=== PATIENT | female | born 1975 | race African-American/Black ===

== ENCOUNTER 2016-04-29 00:02 | Emergency (ER) | payer OTHER ==
[~2016-04-29] VITALS: Ht 165.1 cm; Wt 81.8 kg
[~2016-04-29 00:02] MED LIST: AMOXICILLIN 50500 MG PO; ANTIVERT 25MG25 MG PO; BIAXIN FILMTAB500 MG PO; CARAFATE S1 GM/10 ML PO; CEPHALEXIN500 M1 PO; FLEXERIL10 MG PO; LORTAB 5/500 501 TAB PO; NO HOME MEDICATIONS; NORCO 325 MG-51 TAB PO; PERCOCET 325 MG1 TA2 PO; PERCOCET 5/321 UDTAB PO; PHENERGAN 25 TA25 MG PO; PHENERGAN W/CO120 ML PO; PREDNISONE10 MG PO; PREVACID 30MG30 MG PO; PRIL40 PO; PRILOSEC 20MG20 MG PO; REGLAN 10MG10 MG/TAB PO; TRIAMCINOLONE AC0.5% TP; ULTRAM 50MG TAB50 MG PO; ZITHROMAX Z PA250 MG PO; ZOFRAN8 MG PO
[2016-04-29 00:14] VITALS: TEMP 98.2
[2016-04-29 01:05] LABS: BASO # 0.1 (0.0-0.2); EOS # 0.3 (0.0-0.7); EOS % 4.8 % (0-4.0); GRAN # 3.6 (1.4-6.5); GRAN % 56.5 % (42.2-75.2); HEMOGLOBIN 12.4 g/dl (12.5-16.0); LYMPH # 1.9 (1.2-3.4); MEAN CELL VOLUME 86 fl (80.0-100.0); MEAN CORPUSCULAR HEMOGLOBIN 30 pg (27.0-31.0); MEAN CORPUSCULAR HGB CONC 35 g/dl (33.0-37.0); MEAN PLATELET VOLUME 10.4 fl (7.4-10.4); MONO # 0.5 (0.1-0.6); MONO % 7.5 % (1.7-9.3); PLATELET COUNT 271 K/mm3 (130-400); REDCELL DISTRIBUTION WIDTH-CV 12.3 % (11.5-14.5); WHITE BLOOD COUNT 6.3 K/mm3 (4.8-10.8)
[2016-04-29 01:06] LABS: HEMATOCRIT 35.1 % (37.0-47.0)
[2016-04-29 01:18] LABS: ADJUSTED CALCIUM 9.1 mg/dL (8.4-10.2); ALANINE AMINOTRANSFERASE 32 U/L (9-52); ALBUMIN 3.5 gm/dL (3.5-5.0); ALKALINE PHOSPHATASE 56 U/L (50-136); ANION GAP 10 mmol/L (7-16); BILIRUBIN,TOTAL 0.4 mg/dL (0.0-1.0); BLOOD UREA NITROGEN 13 mg/dL (7-17); CALCIUM 8.7 mg/dL (8.4-10.2); CARBON DIOXIDE 23 mmol/L (22-30); CHLORIDE 107 mmol/L (98-107); CREATININE, serum 0.72 mg/dL (0.52-1.25); GLUCOSE 99 mg/dL (74-106); LIPASE 66 U/L (23-300); MAGNESIUM 1.6 mg/dL (1.6-2.3); POTASSIUM 3.8 mmol/L (3.4-5.0); SODIUM 139 mmol/L (137-145); TOTAL PROTEIN 6.8 gm/dL (6.4-8.2)
[2016-04-29 01:34] LABS: TROPONIN-I < 0.012 ng/mL (0.000-0.034)
[2016-04-29 02:42] VITALS: BP 127/54; PULSE 64
== END 2016-04-29 02:42 | disposition home or self-care (01) ==
LOC: COL.ER 00:02
PROVIDERS: Emergency Medicine
DX: R07.89 Other chest pain (principal); K21.9 Gastro-esophageal reflux disease without esophagitis
CPT/HCPCS: J1885

== ENCOUNTER 2016-05-17 22:13 | Emergency (ER) | payer OTHER ==
[~2016-05-17] VITALS: Ht 165.1 cm; Wt 81.8 kg
[2016-05-17 22:16] VITALS: BP 113/72
[2016-05-17 23:14] LABS: INFLUENZA B NEGATIVE
[2016-05-17 23:25] VITALS: PULSE 82; TEMP 98.6
== END 2016-05-17 23:26 | disposition home or self-care (01) ==
LOC: COL.ER 22:13
PROVIDERS: Physician Assistant
DX: B34.9 Viral infection, unspecified (principal); R05 Cough; R50.9 Fever, unspecified; R09.89 Other specified symptoms and signs involving the circulatory and respiratory systems

== ENCOUNTER → 2016-07-14 | Outpatient (REF) | LOC: WSOH 14:48 | DX: Z01.89 Encounter for other specified special examinations (principal) ==

== ENCOUNTER 2016-07-30 14:53 | Emergency (ER) | payer OTHER ==
[~2016-07-30] VITALS: Ht 165.1 cm; Wt 81.8 kg
[2016-07-30 14:55] VITALS: TEMP 98.2
[2016-07-30 15:50] LABS: BASO # 0.1 (0.0-0.2); BASO % 0.9 % (0.0-2.0); EOS # 0.2 (0.0-0.7); GRAN # 3.4 (1.4-6.5); GRAN % 58.7 % (42.2-75.2); HEMOGLOBIN 12.6 g/dl (12.5-16.0); LYMPH # 1.7 (1.2-3.4); LYMPH % 29.5 % (20.0-51.0); MEAN CELL VOLUME 87 fl (80.0-100.0); MEAN CORPUSCULAR HEMOGLOBIN 30 pg (27.0-31.0); MEAN CORPUSCULAR HGB CONC 35 g/dl (33.0-37.0); MEAN PLATELET VOLUME 10.5 fl (7.4-10.4); MONO # 0.4 (0.1-0.6); MONO % 7.7 % (1.7-9.3); PLATELET COUNT 270 K/mm3 (130-400); RED BLOOD COUNT 4.18 M/mm3 (4.10-5.30); REDCELL DISTRIBUTION WIDTH-CV 12.3 % (11.5-14.5); WHITE BLOOD COUNT 5.7 K/mm3 (4.8-10.8)
[2016-07-30 15:52] LABS: HEMATOCRIT 36.3 % (37.0-47.0)
[2016-07-30] MEDS ORDERED: PRIL40 PO (16:04)
[2016-07-30] MEDS ORDERED: ULTRAM 50MG TAB50 MG PO (16:04)
[2016-07-30] MEDS ORDERED: ZOFRAN8 MG PO (16:04)
[2016-07-30 16:05] LABS: ALANINE AMINOTRANSFERASE 23 U/L (9-52); ALBUMIN 3.9 gm/dL (3.5-5.0); ALKALINE PHOSPHATASE 65 U/L (50-136); ANION GAP 8 mmol/L (7-16); BILIRUBIN,TOTAL 0.6 mg/dL (0.0-1.0); BLOOD UREA NITROGEN 8 mg/dL (7-17); CALCIUM 8.9 mg/dL (8.4-10.2); CARBON DIOXIDE 24 mmol/L (22-30); CHLORIDE 105 mmol/L (98-107); CREATININE, serum 0.62 mg/dL (0.52-1.25); GLUCOSE 90 mg/dL (74-106); LIPASE 45 U/L (23-300); POTASSIUM 3.4 mmol/L (3.4-5.0); SODIUM 138 mmol/L (137-145); TOTAL PROTEIN 7.1 gm/dL (6.4-8.2)
[2016-07-30 16:06] LABS: C-REACTIVE PROTEIN < 0.5 mg/dL (0.0-0.9)
[2016-07-30 16:10] LABS: PH 7 (5-8); SQUAMOUS EPITHELIAL None Seen /hpf; URINE APPEARANCE Clear; URINE BACTERIA None Seen /hpf; URINE BILIRUBIN Negative (NEGATIVE); URINE BLOOD Negative (NEGATIVE); URINE COLOR Straw; URINE GLUCOSE Negative (NEGATIVE); URINE KETONE Negative (NEGATIVE); URINE RBC None Seen /hpf; URINE UROBILINOGEN Negative (NEGATIVE); URINE WBC None Seen /hpf
[2016-07-30 17:44] VITALS: BP 104/66; PULSE 66
== END 2016-07-30 17:50 | disposition home or self-care (01) ==
LOC: COL.ER 14:53
PROVIDERS: Emergency Medicine
DX: R10.13 Epigastric pain (principal); E86.9 Volume depletion, unspecified; R11.10 Vomiting, unspecified; R19.7 Diarrhea, unspecified
CPT/HCPCS: J1170; J1885; J2405; J2765; J7030

== ENCOUNTER 2016-09-10 04:03 | Emergency (ER) | payer SELFPAY ==
[~2016-09-10] VITALS: Ht 165.1 cm; Wt 81.8 kg
[2016-09-10 04:07] VITALS: TEMP 98.3
[2016-09-10 04:21] LABS: BASO % 0.7 % (0.0-2.0); EOS # 0.3 (0.0-0.7); EOS % 4.5 % (0-4.0); GRAN % 53.4 % (42.2-75.2); HEMOGLOBIN 12.2 g/dl (12.5-16.0); LYMPH # 1.9 (1.2-3.4); LYMPH % 34.2 % (20.0-51.0); MEAN CELL VOLUME 86 fl (80.0-100.0); MEAN CORPUSCULAR HEMOGLOBIN 31 pg (27.0-31.0); MEAN CORPUSCULAR HGB CONC 36 g/dl (33.0-37.0); MEAN PLATELET VOLUME 10.8 fl (7.4-10.4); MONO # 0.4 (0.1-0.6); PLATELET COUNT 252 K/mm3 (130-400); RED BLOOD COUNT 3.99 M/mm3 (4.10-5.30); REDCELL DISTRIBUTION WIDTH-CV 12.7 % (11.5-14.5); WHITE BLOOD COUNT 5.6 K/mm3 (4.8-10.8)
[2016-09-10 04:26] LABS: HEMATOCRIT 34.3 % (37.0-47.0)
[2016-09-10 04:31] LABS: INR 1.1 (0.8-3.0); PROTHROMBIN TIME 11.8 SECONDS (9.7-12.8)
[2016-09-10 04:33] LABS: ADJUSTED CALCIUM 8.7 mg/dL (8.4-10.2); ALANINE AMINOTRANSFERASE 21 U/L (9-52); ALBUMIN 3.8 gm/dL (3.5-5.0); ALKALINE PHOSPHATASE 56 U/L (50-136); ANION GAP 10 mmol/L (7-16); BILIRUBIN,TOTAL 0.4 mg/dL (0.0-1.0); BLOOD UREA NITROGEN 9 mg/dL (7-17); CALCIUM 8.5 mg/dL (8.4-10.2); CARBON DIOXIDE 24 mmol/L (22-30); CHLORIDE 106 mmol/L (98-107); CREATININE, serum 0.64 mg/dL (0.52-1.25); GLUCOSE 99 mg/dL (74-106); POTASSIUM 3.7 mmol/L (3.4-5.0); SODIUM 140 mmol/L (137-145); TOTAL PROTEIN 6.8 gm/dL (6.4-8.2)
[2016-09-10 04:34] LABS: PARTIAL THROMBOPLASTIN TIME 31.4 SECONDS (26.0-37.0)
[2016-09-10 04:45] LABS: TROPONIN-I < 0.012 ng/mL (0.000-0.034)
[2016-09-10 08:28] VITALS: BP 106/67; PULSE 60
== END 2016-09-10 06:41 | disposition home or self-care (01) ==
LOC: COL.ER 04:03
PROVIDERS: Family Medicine
DX: R07.89 Other chest pain (principal)
CPT/HCPCS: J1885

== ENCOUNTER 2017-03-25 12:53 | Emergency (ER) | payer SELFPAY ==
[~2017-03-25] VITALS: Ht 162.6 cm; Wt 76.4 kg
[2017-03-25 12:54] VITALS: TEMP 99.1
[2017-03-25 13:29] LABS: BASO % 0.6 % (0.0-2.0); EOS # 0.2 (0.0-0.7); EOS % 2.9 % (0-4.0); GRAN # 2.5 (1.4-6.5); GRAN % 49.5 % (42.2-75.2); HEMOGLOBIN 12.6 g/dl (12.5-16.0); LYMPH # 1.8 (1.2-3.4); MEAN CELL VOLUME 88 fl (80.0-100.0); MEAN CORPUSCULAR HEMOGLOBIN 31 pg (27.0-31.0); MEAN CORPUSCULAR HGB CONC 35 g/dl (33.0-37.0); MEAN PLATELET VOLUME 10.2 fl (7.4-10.4); MONO # 0.6 (0.1-0.6); MONO % 11.8 % (1.7-9.3); PLATELET COUNT 280 K/mm3 (130-400); RED BLOOD COUNT 4.12 M/mm3 (4.10-5.30); WHITE BLOOD COUNT 5.1 K/mm3 (4.8-10.8)
[2017-03-25 13:33] LABS: ADJUSTED CALCIUM 8.7 mg/dL (8.4-10.2); ALANINE AMINOTRANSFERASE 20 U/L (9-52); ALBUMIN 4.1 gm/dL (3.5-5.0); ALKALINE PHOSPHATASE 57 U/L (50-136); ANION GAP 7 mmol/L (7-16); BILIRUBIN,TOTAL 0.5 mg/dL (0.0-1.0); BLOOD UREA NITROGEN 10 mg/dL (7-17); CALCIUM 8.8 mg/dL (8.4-10.2); CARBON DIOXIDE 22 mmol/L (22-30); CHLORIDE 110 mmol/L (98-107); CREATININE, serum 0.62 mg/dL (0.52-1.25); GLUCOSE 94 mg/dL (74-106); HEMATOCRIT 36.3 % (37.0-47.0); LIPASE 42 U/L (23-300); POTASSIUM 3.6 mmol/L (3.4-5.0); SODIUM 139 mmol/L (137-145); TOTAL PROTEIN 7.5 gm/dL (6.4-8.2)
[2017-03-25 13:45] LABS: TROPONIN-I < 0.012 ng/mL (0.000-0.034)
[2017-03-25 15:07] VITALS: BP 116/66; PULSE 57
== END 2017-03-25 15:17 | disposition home or self-care (01) ==
LOC: COL.ER 12:53
PROVIDERS: Physician Assistant
DX: K21.9 Gastro-esophageal reflux disease without esophagitis (principal); R07.89 Other chest pain; G89.29 Other chronic pain
CPT/HCPCS: J1885; J2270; J2405

== ENCOUNTER 2017-06-25 17:06 | Emergency (ER) | payer SELFPAY ==
[~2017-06-25] VITALS: Ht 165.1 cm; Wt 81.8 kg
[2017-06-25 17:08] VITALS: TEMP 97.7
[2017-06-25 17:38] LABS: BASO # 0.1 (0.0-0.2); BASO % 0.9 % (0.0-2.0); EOS # 0.3 (0.0-0.7); GRAN # 2.9 (1.4-6.5); GRAN % 52.4 % (42.2-75.2); HEMOGLOBIN 12.8 g/dl (12.5-16.0); LYMPH # 1.8 (1.2-3.4); LYMPH % 32.8 % (20.0-51.0); MEAN CELL VOLUME 90 fl (80.0-100.0); MEAN CORPUSCULAR HEMOGLOBIN 31 pg (27.0-31.0); MEAN CORPUSCULAR HGB CONC 35 g/dl (33.0-37.0); MEAN PLATELET VOLUME 10.5 fl (7.4-10.4); MONO # 0.5 (0.1-0.6); MONO % 8.7 % (1.7-9.3); PLATELET COUNT 288 K/mm3 (130-400); RED BLOOD COUNT 4.13 M/mm3 (4.10-5.30); REDCELL DISTRIBUTION WIDTH-CV 12.3 % (11.5-14.5)
[2017-06-25 18:29] LABS: ALANINE AMINOTRANSFERASE 31 U/L (9-52); ALBUMIN 4.2 gm/dL (3.5-5.0); ALKALINE PHOSPHATASE 55 U/L (50-136); ANION GAP 10 mmol/L (7-16); AST,SGOT 22 U/L (15-37); BILIRUBIN,TOTAL 0.2 mg/dL (0.0-1.0); BLOOD UREA NITROGEN 12 mg/dL (7-17); CARBON DIOXIDE 23 mmol/L (22-30); CHLORIDE 109 mmol/L (98-107); CREATININE, serum 0.63 mg/dL (0.52-1.25); GLUCOSE 91 mg/dL (74-106); POTASSIUM 4.1 mmol/L (3.4-5.0); SODIUM 141 mmol/L (137-145); TOTAL PROTEIN 7.5 gm/dL (6.4-8.2)
[2017-06-25 18:41] LABS: TROPONIN-I < 0.012 ng/mL (0.000-0.034)
[2017-06-25] MEDS ORDERED: VOLTAREN 75 DR75 MG PO (19:26)
[2017-06-25 19:34] VITALS: BP 116/71; PULSE 73
== END 2017-06-25 19:35 | disposition home or self-care (01) ==
LOC: COL.ER 17:06
PROVIDERS: Emergency Medicine
DX: R07.89 Other chest pain (principal); Z90.710 Acquired absence of both cervix and uterus; Z90.49 Acquired absence of other specified parts of digestive tract; Z90.89 Acquired absence of other organs
CPT/HCPCS: J1885; J2060; J3010

== ENCOUNTER 2017-06-29 16:44 | Emergency (ER) | payer SELFPAY ==
[~2017-06-29] VITALS: Ht 165.1 cm; Wt 82.2 kg
[~2017-06-29 16:44] MED LIST changes: +VOLTAREN 75 DR75 MG PO
[2017-06-29 16:46] VITALS: BP 132/63; TEMP 98.6
[2017-06-29 18:15] VITALS: PULSE 79
== END 2017-06-29 18:15 | disposition home or self-care (01) ==
LOC: COL.ER 16:44
DX: R05 Cough (principal); Z90.89 Acquired absence of other organs; Z90.710 Acquired absence of both cervix and uterus; Z98.51 Tubal ligation status

== ENCOUNTER → 2017-08-12 | Outpatient (CLI) | payer SELFPAY | LOC: COL.RAD 16:30 | DX: M25.561 Pain in right knee (principal); M25.562 Pain in left knee ==

== ENCOUNTER → 2017-09-16 | Outpatient (CLI) | payer SELFPAY | LOC: COL.RAD 13:35 | DX: M71.22 Synovial cyst of popliteal space [Baker], left knee (principal); M25.461 Effusion, right knee; I83.91 Asymptomatic varicose veins of right lower extremity ==

== ENCOUNTER 2017-09-29 23:06 | Emergency (ER) | payer SELFPAY ==
[~2017-09-29] VITALS: Ht 165.1 cm; Wt 83.6 kg
[2017-09-29 23:14] VITALS: TEMP 97.8
[2017-09-29 23:28] LABS: BASO % 0.4 % (0.0-2.0); EOS # 0.2 (0.0-0.7); GRAN # 5.9 (1.4-6.5); GRAN % 66.2 % (42.2-75.2); HEMOGLOBIN 13.2 g/dl (12.5-16.0); LYMPH # 2.2 (1.2-3.4); LYMPH % 24.9 % (20.0-51.0); MEAN CELL VOLUME 85 fl (80.0-100.0); MEAN CORPUSCULAR HEMOGLOBIN 30 pg (27.0-31.0); MEAN CORPUSCULAR HGB CONC 36 g/dl (33.0-37.0); MEAN PLATELET VOLUME 10.5 fl (7.4-10.4); MONO # 0.6 (0.1-0.6); MONO % 6.3 % (1.7-9.3); PLATELET COUNT 320 K/mm3 (130-400); RED BLOOD COUNT 4.34 M/mm3 (4.10-5.30); REDCELL DISTRIBUTION WIDTH-CV 12.1 % (11.5-14.5)
[2017-09-29 23:33] LABS: PROTHROMBIN TIME 11.9 SECONDS (9.7-12.8)
[2017-09-29 23:36] LABS: PARTIAL THROMBOPLASTIN TIME 31.4 SECONDS (26.0-37.0)
[2017-09-29 23:38] LABS: ALANINE AMINOTRANSFERASE 26 U/L (9-52); ALBUMIN 3.8 gm/dL (3.5-5.0); ALKALINE PHOSPHATASE 66 U/L (50-136); ANION GAP 11 mmol/L (7-16); AST,SGOT 19 U/L (15-37); BILIRUBIN,TOTAL 0.5 mg/dL (0.0-1.0); BLOOD UREA NITROGEN 9 mg/dL (7-17); CALCIUM 9.1 mg/dL (8.4-10.2); CARBON DIOXIDE 23 mmol/L (22-30); CHLORIDE 106 mmol/L (98-107); CREATININE, serum 0.66 mg/dL (0.52-1.25); GLUCOSE 115 mg/dL (74-106); LIPASE 50 U/L (23-300); POTASSIUM 3.6 mmol/L (3.4-5.0); SODIUM 140 mmol/L (137-145); TOTAL PROTEIN 7.8 gm/dL (6.4-8.2)
[2017-09-29 23:51] LABS: TROPONIN-I < 0.012 ng/mL (0.000-0.034)
[2017-09-30 02:10] VITALS: BP 103/73; PULSE 88
== END 2017-09-30 02:10 | disposition home or self-care (01) ==
LOC: COL.ER 23:06
PROVIDERS: Emergency Medicine
DX: R07.89 Other chest pain (principal); K21.9 Gastro-esophageal reflux disease without esophagitis; Z90.710 Acquired absence of both cervix and uterus; Z90.89 Acquired absence of other organs
CPT/HCPCS: J2060; J2270; J2405; J7030

== ENCOUNTER 2017-10-06 18:20 | Emergency (ER) | payer SELFPAY ==
[~2017-10-06] VITALS: Ht 165.1 cm; Wt 83.6 kg
[2017-10-06 18:28] VITALS: BP 109/73; TEMP 98.1
[2017-10-06 18:59] LABS: BASO # 0.1 (0.0-0.2); EOS # 0.3 (0.0-0.7); EOS % 3.4 % (0-4.0); GRAN # 4.3 (1.4-6.5); GRAN % 58.7 % (42.2-75.2); HEMOGLOBIN 12.9 g/dl (12.5-16.0); LYMPH # 2.1 (1.2-3.4); LYMPH % 28.4 % (20.0-51.0); MEAN CELL VOLUME 87 fl (80.0-100.0); MEAN CORPUSCULAR HEMOGLOBIN 31 pg (27.0-31.0); MEAN CORPUSCULAR HGB CONC 35 g/dl (33.0-37.0); MEAN PLATELET VOLUME 10.3 fl (7.4-10.4); MONO # 0.6 (0.1-0.6); MONO % 8.2 % (1.7-9.3); PLATELET COUNT 296 K/mm3 (130-400); RED BLOOD COUNT 4.18 M/mm3 (4.10-5.30); REDCELL DISTRIBUTION WIDTH-CV 11.9 % (11.5-14.5)
[2017-10-06 19:02] LABS: HEMATOCRIT 36.5 % (37.0-47.0)
[2017-10-06 19:07] LABS: ALBUMIN 3.6 gm/dL (3.5-5.0); BILIRUBIN,TOTAL 0.4 mg/dL (0.0-1.0); CALCIUM 8.8 mg/dL (8.4-10.2); CREATININE, serum 0.91 mg/dL (0.52-1.25); POTASSIUM 4.1 mmol/L (3.4-5.0); TOTAL PROTEIN 7.2 gm/dL (6.4-8.2)
[2017-10-06] MEDS ORDERED: PEPCID 20MG TAB20 MG PO (20:59)
[2017-10-06 21:16] VITALS: PULSE 65
== END 2017-10-06 21:16 | disposition home or self-care (01) ==
LOC: COL.ER 18:20
PROVIDERS: Emergency Medicine
DX: G89.29 Other chronic pain (principal); R10.13 Epigastric pain; K21.9 Gastro-esophageal reflux disease without esophagitis; F17.210 Nicotine dependence, cigarettes, uncomplicated; Z90.89 Acquired absence of other organs; Z90.710 Acquired absence of both cervix and uterus; Z98.51 Tubal ligation status
CPT/HCPCS: J2765; J3010; J7030

== ENCOUNTER 2017-12-03 17:18 | Emergency (ER) | payer OTHER ==
[~2017-12-03] VITALS: Ht 162.6 cm; Wt 81.8 kg
[~2017-12-03 17:18] MED LIST changes: +PEPCID 20MG TAB20 MG PO
[2017-12-03 17:28] VITALS: BP 103/64; TEMP 98.4
[2017-12-03 19:32] VITALS: PULSE 62
== END 2017-12-03 19:33 | disposition home or self-care (01) ==
LOC: COL.ER 17:18
DX: S09.90XA Unspecified injury of head, initial encounter (principal); R11.0 Nausea; R40.2412 Glasgow coma scale score 13-15, at arrival to emergency department; F17.210 Nicotine dependence, cigarettes, uncomplicated; W22.8XXA Striking against or struck by other objects, initial encounter; Y92.89 Other specified places as the place of occurrence of the external cause; Y99.0 Civilian activity done for income or pay
CPT/HCPCS: J1885

== ENCOUNTER → 2017-12-07 | Outpatient (CLI) | payer SELFPAY ==
[2017-12-07 08:25] LABS: HEMOGLOBIN 13.3 g/dl (12.5-16.0); MEAN CELL VOLUME 88 fl (80.0-100.0); MEAN CORPUSCULAR HEMOGLOBIN 31 pg (27.0-31.0); MEAN CORPUSCULAR HGB CONC 35 g/dl (33.0-37.0); MEAN PLATELET VOLUME 10.6 fl (7.4-10.4); PLATELET COUNT 294 K/mm3 (130-400); RED BLOOD COUNT 4.33 M/mm3 (4.10-5.30)
[2017-12-07 08:41] LABS: ALBUMIN 3.8 gm/dL (3.5-5.0); BILIRUBIN,TOTAL 0.4 mg/dL (0.0-1.0); CALCIUM 8.9 mg/dL (8.4-10.2); CHOLESTEROL RISK RATIO 4.3; CREATININE, serum 0.63 mg/dL (0.52-1.25); POTASSIUM 3.8 mmol/L (3.4-5.0); TOTAL PROTEIN 7.3 gm/dL (6.4-8.2)
== END ==
LOC: COL.RAD 07:30
PROVIDERS: Nurse Practitioner Family
DX: R10.13 Epigastric pain (principal)

== ENCOUNTER 2018-01-25 10:04 | Outpatient (RCR) | payer OTHER | END 2018-04-04 | disposition home or self-care (01) | LOC: WSOH | DX: S00.83XA Contusion of other part of head, initial encounter (principal); S16.1XXA Strain of muscle, fascia and tendon at neck level, initial encounter; F07.81 Postconcussional syndrome; W22.8XXA Striking against or struck by other objects, initial encounter; Y93.E5 Activity, floor mopping and cleaning; Y99.0 Civilian activity done for income or pay; Z79.1 Long term (current) use of non-steroidal anti-inflammatories (NSAID); Z87.891 Personal history of nicotine dependence ==

== ENCOUNTER 2018-02-09 15:18 | Emergency (ER) | payer SELFPAY ==
[~2018-02-09] VITALS: Ht 165.1 cm; Wt 80.9 kg
[2018-02-09 15:22] VITALS: TEMP 98.4
[2018-02-09 15:59] LABS: BASO % 0.7 % (0.0-2.0); EOS # 0.2 (0.0-0.7); EOS % 3.1 % (0-4.0); GRAN % 55.5 % (42.2-75.2); HEMOGLOBIN 13.1 g/dl (12.5-16.0); LYMPH # 1.8 (1.2-3.4); LYMPH % 33.1 % (20.0-51.0); MEAN CELL VOLUME 86 fl (80.0-100.0); MEAN CORPUSCULAR HEMOGLOBIN 31 pg (27.0-31.0); MEAN CORPUSCULAR HGB CONC 36 g/dl (33.0-37.0); MEAN PLATELET VOLUME 10.6 fl (7.4-10.4); MONO # 0.4 (0.1-0.6); MONO % 7.4 % (1.7-9.3); PLATELET COUNT 324 K/mm3 (130-400); RED BLOOD COUNT 4.29 M/mm3 (4.10-5.30); REDCELL DISTRIBUTION WIDTH-CV 12.1 % (11.5-14.5)
[2018-02-09 16:05] LABS: HEMATOCRIT 36.9 % (37.0-47.0)
[2018-02-09 16:06] LABS: ALANINE AMINOTRANSFERASE 31 U/L (9-52); ALBUMIN 4.1 gm/dL (3.5-5.0); ALKALINE PHOSPHATASE 57 U/L (50-136); ANION GAP 14 mmol/L (7-16); AST,SGOT 35 U/L (15-37); BILIRUBIN,TOTAL 0.5 mg/dL (0.0-1.0); BLOOD UREA NITROGEN 8 mg/dL (7-17); CALCIUM 9.1 mg/dL (8.4-10.2); CARBON DIOXIDE 22 mmol/L (22-30); CHLORIDE 106 mmol/L (98-107); GLUCOSE 108 mg/dL (74-106); POTASSIUM 3.4 mmol/L (3.4-5.0); SODIUM 142 mmol/L (137-145); TOTAL PROTEIN 7.5 gm/dL (6.4-8.2)
[2018-02-09 16:31] LABS: TROPONIN-I < 0.012 ng/mL (0.000-0.034)
[2018-02-09 18:19] VITALS: BP 121/82; PULSE 74
== END 2018-02-09 18:20 | disposition home or self-care (01) ==
LOC: COL.ER 15:18
PROVIDERS: Nurse Practitioner
DX: R07.89 Other chest pain (principal); F17.210 Nicotine dependence, cigarettes, uncomplicated; Z90.89 Acquired absence of other organs; Z90.710 Acquired absence of both cervix and uterus; Z98.890 Other specified postprocedural states
CPT/HCPCS: J1200; J2270; J2930; Q9967

== ENCOUNTER → 2018-07-27 | Outpatient (CLI) | payer OTHER | LOC: COL.RAD 07:46 | DX: R10.11 Right upper quadrant pain (principal) | CPT/HCPCS: A9537 ==

== ENCOUNTER → 2018-09-13 | Outpatient (CLI) | payer SELFPAY | LOC: COL.RAD 08:09 | DX: R14.0 Abdominal distension (gaseous) (principal); R10.13 Epigastric pain | CPT/HCPCS: A9541 ==

== ENCOUNTER 2018-12-15 09:32 | Outpatient (RCR) | payer OTHER | END 2019-03-08 | disposition home or self-care (01) | LOC: WSOH | DX: S06.0X0A Concussion without loss of consciousness, initial encounter (principal); S00.83XA Contusion of other part of head, initial encounter; W22.8XXA Striking against or struck by other objects, initial encounter; Y93.E5 Activity, floor mopping and cleaning; Y92.230 Patient room in hospital as the place of occurrence of the external cause; Y99.0 Civilian activity done for income or pay; Z98.51 Tubal ligation status; Z90.710 Acquired absence of both cervix and uterus; Z90.49 Acquired absence of other specified parts of digestive tract ==

== ENCOUNTER → 2019-05-16 | Outpatient (CLI) | payer BC | LOC: COL.RAD 11:03 | DX: R22.2 Localized swelling, mass and lump, trunk (principal) ==

== ENCOUNTER → 2019-08-19 | Outpatient (CLI) | payer BC | LOC: COL.ER 12:50 | DX: U07.1 COVID-19 (principal) ==

== ENCOUNTER 2020-07-06 10:28 | Day surgery (SDC) | payer BC ==
[~2020-07-06] VITALS: Ht 165.1 cm; Wt 86.2 kg
[2020-07-06 10:59] VITALS: BP 115/61; PULSE 73; TEMP 98.9
--- NOTE | 2020-07-06 11:07 | NUR ---
TO RM 8 AT 1040- CALL LIGHT IN REACH
--- NOTE | 2020-07-06 13:05 | NUR ---
AMBULATED TO BATHROOM AND TOLERATED WELL.
[2020-07-06] MEDS ORDERED: NORCO 325 MG-51 TAB PO (14:00)
[2020-07-06 14:45] VITALS: BP 79/38; PULSE 66
--- NOTE | 2020-07-06 14:45 | NUR ---
TO RM 8 PER CART FROM PACU. DROWSY AND ANSWERING QUESTIONS COHERENTLY AND FALLS BACK TO SLEEP. AT BEDSIDE. DRESSING CLEAN DRY AND INTACT. DENIES NAUSEA OR VOMITING.
[2020-07-06 15:00] VITALS: BP 89/53; PULSE 57
--- NOTE | 2020-07-06 15:00 | NUR ---
PATIENT CONTINUES TO SLEEP QUIETLY.
[2020-07-06 15:15] VITALS: BP 99/58; PULSE 63
--- NOTE | 2020-07-06 15:15 | NUR ---
AWAKE AND ASKING TO EAT. RECEIVED CRACKERS AND SPRITE.
[2020-07-06 15:30] VITALS: BP 106/58; PULSE 68
--- NOTE | 2020-07-06 15:30 | NUR ---
RECEIVED 2ND PKG OF CRACKERS. ATE 100% AMBULATED TO BATHROOM. VOIDED AND AMBULATED BACK TO BED
--- NOTE | 2020-07-06 15:45 | NUR ---
RECEIVED DISCHARGE INSTRUCTIONS AND VERBALIZED UNDERSTANDING.
--- NOTE | 2020-07-06 15:53 | NUR ---
DISCHARGED PER WC BY NURSING STAFF TO PRIVATE CAR IN CARE OF DRISS.
== END 2020-07-06 16:03 | disposition home or self-care (01) ==
LOC: SDCO
DX: D17.1 Benign lipomatous neoplasm of skin and subcutaneous tissue of trunk (principal); Z20.822 Contact with and (suspected) exposure to COVID-19; Z90.89 Acquired absence of other organs; Z90.710 Acquired absence of both cervix and uterus; Z86.79 Personal history of other diseases of the circulatory system; F17.290 Nicotine dependence, other tobacco product, uncomplicated
CPT/HCPCS: J0690; J1885; J2250; J2704; J3010; J7120

== ENCOUNTER → 2020-08-14 | Outpatient (REF) | LOC: COL.LAB 16:32 | DX: Z20.822 Contact with and (suspected) exposure to COVID-19 (principal) ==

== ENCOUNTER 2021-08-14 09:32 | Day surgery (SDC) | payer BC ==
[~2021-08-14] VITALS: Ht 165.1 cm; Wt 84.5 kg
[2021-08-14 10:40] VITALS: BP 123/60; PULSE 68; TEMP 98.8
[2021-08-14 12:24] VITALS: BP 103/59; PULSE 62
--- NOTE | 2021-08-14 12:24 | NUR ---
Patient returns to room 1 per cart from surgery accompanied by Jess BRANCH and Jun Layton CRNA and is awake and alert. IV fluids infusing and site is free of redness. Siderails up x2 and call light in reach. Allowed to rest.
[2021-08-14] MEDS ORDERED: ULTRAM 50MG TAB50 MG PO (12:37)
[2021-08-14 12:39] VITALS: BP 113/61; PULSE 63
--- NOTE | 2021-08-14 12:39 | NUR ---
Eating crackers and drinking Pepsi. Dr. Paul in the room and talks with the patient. Dressing clean and dry on the upper middle back.
[2021-08-14 12:54] VITALS: BP 121/71; PULSE 69
--- NOTE | 2021-08-14 12:54 | NUR ---
Rates pain at 7/10. Tolerated snack well. IV fluids continue to infuse.
--- NOTE | 2021-08-14 13:00 | NUR ---
Medicated with Tramadol 50mg po for pain at 11/03.
--- NOTE | 2021-08-14 13:25 | NUR ---
IV discontinued and site is free of redness. Dressing remains clean and dry. Patient states that her ride is here and is ready to go home. Given dismissal instructions and voices understanding of these. Provided office number for quesitons and concerns.
== END 2021-08-14 13:25 | disposition home or self-care (01) ==
LOC: SDCO 09:32
DX: D17.1 Benign lipomatous neoplasm of skin and subcutaneous tissue of trunk (principal)
CPT/HCPCS: J0690; J1100; J1885; J2405; J2704; J3010; J7120

== ENCOUNTER 2023-03-26 09:27 | Emergency (ER) | payer BC ==
[~2023-03-26] VITALS: Ht 162.6 cm; Wt 77.3 kg
[2023-03-26 09:31] VITALS: TEMP 98.1
[2023-03-26] MEDS ORDERED: MAXALT10 MG PO (09:43)
[2023-03-26 10:03] LABS: BASO % 0.7 % (0.0-2.0); EOS # 0.2 K/mm3 (0.0-0.7); EOS % 3.5 % (0.0-4.0); GRAN # 2.6 K/mm3 (1.4-6.5); GRAN % 48.2 % (42.2-75.2); HEMATOCRIT 39.9 % (37.0-47.0); HEMOGLOBIN 13.8 g/dl (12.5-16.0); LYMPH # 2.1 K/mm3 (1.2-3.4); LYMPH % 39.4 % (20.0-51.0); MEAN CELL VOLUME 89 fl (80.0-100.0); MEAN CORPUSCULAR HEMOGLOBIN 31 pg (27-31); MEAN CORPUSCULAR HGB CONC 35 g/dl (33.0-37.0); MEAN PLATELET VOLUME 10.4 fl (7.4-10.4); MONO # 0.4 K/mm3 (0.1-0.6); PLATELET COUNT 293 K/mm3 (130-400); RED BLOOD COUNT 4.47 M/mm3 (4.10-5.30); REDCELL DISTRIBUTION WIDTH-CV 11.9 % (11.5-14.5)
[2023-03-26 10:43] LABS: ALBUMIN 3.8 gm/dL (3.5-5.0); BILIRUBIN,TOTAL 0.3 mg/dL (0.2-1.2); CALCIUM 9.3 mg/dL (8.4-10.2); CREATININE, serum 0.71 mg/dL (0.57-1.11); POTASSIUM 3.8 mmol/L (3.5-4.5); TOTAL PROTEIN 7.5 gm/dL (6.2-8.1)
[2023-03-26 10:50] LABS: TROPONIN-I 0.01 ng/mL (0.00-0.033)
[2023-03-26 11:32] VITALS: BP 110/89; PULSE 55
== END 2023-03-26 11:37 | disposition home or self-care (01) ==
LOC: COL.ER 09:27
PROVIDERS: Emergency Medicine
DX: R07.89 Other chest pain (principal)
CPT/HCPCS: J1885

== ENCOUNTER 2023-05-05 23:42 | Emergency (ER) | payer BC ==
[~2023-05-05] VITALS: Ht 162.6 cm; Wt 2.4 kg
[~2023-05-05 23:42] MED LIST changes: +MAXALT10 MG PO
[2023-05-05 23:56] VITALS: TEMP 97.9
[2023-05-06 02:20] VITALS: BP 121/79; PULSE 74
== END 2023-05-06 02:20 | disposition home or self-care (01) ==
LOC: COL.ER 23:42
DX: J06.9 Acute upper respiratory infection, unspecified (principal); F17.200 Nicotine dependence, unspecified, uncomplicated

== ENCOUNTER 2023-05-14 15:17 | Emergency (ER) | payer BC ==
[~2023-05-14] VITALS: Ht 162.6 cm; Wt 77.3 kg
[2023-05-14 15:22] VITALS: TEMP 97.8
[2023-05-14] MEDS ORDERED: Ondansetron 4 MG/2 ML VIAL IV ONE (15:45)
[2023-05-14] MEDS ORDERED: NS 1,000 ML IV ONE (15:45)
[2023-05-14] MEDS ORDERED: Morphine 4 MG/ML VIAL IV PRN (15:45)
[2023-05-14 15:49] LABS: BASO % 0.8 % (0.0-2.0); EOS # 0.1 K/mm3 (0.0-0.7); EOS % 2.6 % (0.0-4.0); GRAN # 2.7 K/mm3 (1.4-6.5); GRAN % 51.5 % (42.2-75.2); HEMATOCRIT 41.1 % (37.0-47.0); HEMOGLOBIN 14.4 g/dl (12.5-16.0); LYMPH # 1.9 K/mm3 (1.2-3.4); LYMPH % 35.3 % (20.0-51.0); MEAN CELL VOLUME 88 fl (80.0-100.0); MEAN CORPUSCULAR HEMOGLOBIN 31 pg (27-31); MEAN CORPUSCULAR HGB CONC 35 g/dl (33.0-37.0); MEAN PLATELET VOLUME 10.3 fl (7.4-10.4); MONO # 0.5 K/mm3 (0.1-0.6); MONO % 9.6 % (1.7-9.3); PLATELET COUNT 300 K/mm3 (130-400); RED BLOOD COUNT 4.65 M/mm3 (4.10-5.30); REDCELL DISTRIBUTION WIDTH-CV 12.1 % (11.5-14.5)
[2023-05-14 16:01] LABS: ALANINE AMINOTRANSFERASE 14 U/L (0-55); ALBUMIN 3.9 gm/dL (3.5-5.0); ALKALINE PHOSPHATASE 85 U/L (40-150); ANION GAP 8 mmol/L (7-16); AST,SGOT 13 U/L (5-34); BILIRUBIN,TOTAL 0.4 mg/dL (0.2-1.2); BLOOD UREA NITROGEN 13 mg/dL (7-19); CALCIUM 9.2 mg/dL (8.4-10.2); CARBON DIOXIDE 23 mmol/L (22-29); CHLORIDE 110 mmol/L (98-107); CREATINE KINASE 63 U/L (29-168); CREATININE, serum 0.72 mg/dL (0.57-1.11); GLUCOSE 106 mg/dL (70-99); POTASSIUM 3.8 mmol/L (3.5-4.5); SODIUM 141 mmol/L (136-145); TOTAL PROTEIN 7.4 gm/dL (6.2-8.1)
[2023-05-14 16:07] LABS: TROPONIN-I < 0.010 ng/mL (0.00-0.033)
[2023-05-14] MEDS ORDERED: Iohexol 300 - 100 ML VIAL IV ONE (16:45)
[2023-05-14] MEDS ORDERED: NS 100 ML IV SCH (16:46)
[2023-05-14] MEDS ORDERED: Ketorolac 30 MG/ML VIAL IV ONE (17:15)
[2023-05-14] MEDS ORDERED: NORCO 325 MG-51 TAB PO (17:36)
[2023-05-14] MEDS ORDERED: PREDNISONE50 MG PO (17:36)
[2023-05-14 17:58] VITALS: BP 113/65; PULSE 80
== END 2023-05-14 18:02 | disposition home or self-care (01) ==
LOC: COL.ER 15:17
PROVIDERS: Emergency Medicine
DX: R07.89 Other chest pain (principal); R00.1 Bradycardia, unspecified; R06.02 Shortness of breath; F17.210 Nicotine dependence, cigarettes, uncomplicated
CPT/HCPCS: J1885; J2270; J2405; J7030; Q9967